=== PATIENT | female | born 1985 | race Asian ===

== ENCOUNTER → 2020-11-28 11:36 | Outpatient (CLI) | payer OTHER, SELFPAY ==
[2020-11-28 12:54] LABS: COVID19 -Nasal RAPID Negative (Negative)
== END ==
PROVIDERS: PCP Family Medicine; Visit Provider Nurse Practitioner Family
DX: Z20.822 Contact with and (suspected) exposure to COVID-19 (principal)
CPT/HCPCS: 87635

== ENCOUNTER → 2021-06-06 10:52 | Outpatient (CLI) | payer OTHER, SELFPAY ==
--- NOTE | 2021-06-06 10:54 | DI.RAD.S_ITS ---
PROCEDURE: XR LUMBAR SPINE 2-3V INDICATIONS: Chronic low back pain TECHNIQUE: 2 views of the lumbar spine were acquired. COMPARISON: None. FINDINGS: Bones: There are 6 [id number] lumbar type vertebral bodies of normal height and alignment. No suspicious lytic or blastic osseous lesion. Disc spaces maintained. Soft tissues: Overlying bowel gas pattern is normal. No suspicious soft tissue calcifications. IMPRESSION: No acute finding or significant degenerative change. Dictated by: Kenneth Nichole M.D. on 06/06/2021 at 12:18 Approved by: Kenneth Nichole M.D. on 06/06/2021 at 12:19
== END ==
PROVIDERS: PCP Family Medicine; Referring Provider Family Medicine; Visit Provider Family Medicine
DX: M54.50 Low back pain, unspecified (principal); G89.29 Other chronic pain
CPT/HCPCS: 72100